=== PATIENT | female | born 1995 | race Caucasian/White ===

== ENCOUNTER 2017-03-04 11:34 | Emergency (ER) | payer BC, MEDICAID, OTHER ==
[2017-03-04 11:53] VITALS: BP 126/72
--- NOTE | 2017-03-04 12:27 | EDM.PDOC ---
ED HPI GENERAL MEDICAL PROBLEM - General Chief Complaint: Upper Extremity Injury/Pain Stated Complaint: RT HAND Time Seen by Provider: 03/04/17 11:50 Source of Information: Reports: Patient History Limitations: Reports: No Limitations - History of Present Illness INITIAL COMMENTS - FREE TEXT/NARRATIVE: Laurie was bucked off a horse last pm, landing onto outstretched R hand. There has been residual pain and stiffness since. There is no loss of sensation or swelling. Movement at the wrist also aggravates R hand pain. She has taken no meds. 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 Musculoskeletal History: Reports: Fracture, Other (See Below) Other Musculoskeletal History: FX OF RIGHT HAND Neurological History: Reports: None Psychiatric History: Reports: None Endocrine/Metabolic History: Reports: None Hematologic History: Reports: None Immunologic History: Reports: None Oncologic (Cancer) History: Reports: None Dermatologic History: Reports: None - Past Surgical History Head Surgeries/Procedures: Reports: None HEENT Surgical History: Reports: Oral Surgery Cardiovascular Surgical History: Reports: None Respiratory Surgical History: Reports: None GI Surgical History: Reports: None Female Surgical History: Reports: None Endocrine Surgical History: Reports: None Neurological Surgical History: Reports: None Musculoskeletal Surgical History: Reports: None Dermatological Surgical History: Reports: None Social & Family History - Tobacco Use Smoking Status *Q: Light Tobacco Smoker Years of Tobacco use: 4 Packs/Tins Daily: 0.1 - Caffeine Use Caffeine Use: Reports: Coffee, Energy Drinks, Soda, Tea - Recreational Drug Use Drug Use in Last 12 Months: Yes Recreational Drug Type: Reports: Marijuana/Hashish Recreational Drug Use Frequency: Socially Review of Systems - Review of Systems Review Of Systems: See Below Constitutional: Reports: No Symptoms Eyes: Reports: No Symptoms Ears: Reports: No Symptoms Nose: Reports: No Symptoms Mouth/Throat: Reports: No Symptoms Respiratory: Reports: No Symptoms Cardiovascular: Reports: No Symptoms GI/Abdominal: Reports: No Symptoms, Other Musculoskeletal: Reports: Hand Pain (right) Skin: Reports: No Symptoms Neurological: Reports: No Symptoms Psychiatric: Reports: No Symptoms ED EXAM, GENERAL - Physical Exam Exam: See Below Exam Limited By: No Limitations General Appearance: Alert, WD/WN, No Apparent Distress Head: Normocephalic Neck: Normal Inspection, Supple Respiratory/Chest: Lungs Clear Cardiovascular: Regular Rate, Rhythm Back Exam: Normal Inspection, Full Range of Motion Extremities: Normal Inspection, Limited Range of Motion (guarding right hand to grasp and full extension; guarding right wrist to extension; no swelling or deformity) Neurological: Alert, Oriented, CN II-XII Intact, Normal Cognition, No Motor/ Sensory Deficits Psychiatric: Normal Affect, Normal Mood Skin Exam: Warm, Dry Lymphatic: No Adenopathy Course - Vital Signs Text/Narrative:: X rays of R hand: no fx seen. No meds dispensed in the ED. Last Recorded V/S: Last Vital Signs Temp 36.7 C 03/04/17 11:41 Pulse 51 L 03/04/17 11:41 Resp 16 03/04/17 11:41 BP 126/72 03/04/17 11:41 Pulse Ox 99 03/04/17 11:41 - Orders/Labs/Meds Orders: Active Orders 24 hr Category Date Time Status Hand Comp Min 3V Rt [CR] Stat Exams 03/04/17 12:05 Taken Departure - Departure Time of Disposition: 12:15 Disposition: Home, Self-Care 01 Condition: fair Clinical Impression: Sprain of right hand Qualifiers: Encounter type: initial encounter Qualified Code(s): S63.91XA - Sprain of unspecified part of right wrist and hand, initial encounter - Discharge Information Forms: ED Department Discharge - Problem List & Annotations (1) Sprain of right hand SNOMED Code(s): 17414669 Code(s): S63.91XA - SPRAIN OF UNSP PART OF RIGHT WRIST AND HAND, INIT ENCNTR Status: Acute Current Visit: Yes Annotation/Comment:: Simple sprain of R hand, managed with NSAIDs, AROM, and activity as tolerated. Qualifiers: Encounter type: initial encounter Qualified Code(s): S63.91XA - Sprain of unspecified part of right wrist and hand, initial encounter - Problem List Review Problem List Initiated/Reviewed/Updated: Yes - My Orders Last 24 Hours: My Active Orders 03/04/17 12:05 Hand Comp Min 3V Rt [CR] Stat - Assessment/Plan Last 24 Hours: My Active Orders 03/04/17 12:05 Hand Comp Min 3V Rt [CR] Stat Plan: Follow up with PCP if needed.
--- NOTE | 2017-03-04 16:18 | CR ---
INDICATION: Pain, injury. RIGHT HAND: Three views of the right hand were obtained and revealed no evidence of an acute fracture, dislocation, or other significant bone or joint abnormality. IMPRESSION: Normal right hand. MTDD
== END 2017-03-04 12:30 | disposition home or self-care (01) ==
LOC: FB.ED 11:34
DX: S63.91XA Sprain of unspecified part of right wrist and hand, initial encounter (principal); F17.210 Nicotine dependence, cigarettes, uncomplicated; Z91.09 Other allergy status, other than to drugs and biological substances; Z98.890 Other specified postprocedural states; X58.XXXA Exposure to other specified factors, initial encounter
CPT/HCPCS: 73130-RT; 99283

== ENCOUNTER 2017-07-19 22:30 | Emergency (ER) | payer BC, MEDICAID ==
--- NOTE | 2017-07-19 22:38 | EDM.PDOCBH ---
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 Pt had those issues before -6 months ago-and was "cleared" by the . Pt denied any pysical issues, no N/V/D, no F/C. Pt stated, she is occ very lonely Onset: Today Onset Date: 07/20/17 Onset Time: 20:00 Duration: Hour(s):, Intermittent Location: Reports: Generalized Quality: Reports: Other (suicidal attempt) Improves with: Reports: None Worsens with: Reports: Other (depressed) - Related Data Allergies Allergy/AdvReac Type Severity Reaction Status Date / Time annika Allergy Hives Verified 07/20/17 02:47 Home Meds: Home Meds NK [No Known Home Meds] 07/20/17 [History] Past Medical History HEENT History: Reports: None Cardiovascular History: Reports: None Respiratory History: Reports: None Gastrointestinal History: Reports: None Genitourinary History: Reports: None 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 Musculoskeletal History: Reports: Fracture, Other (See Below) Other Musculoskeletal History: FX OF RIGHT HAND Neurological History: Reports: None Psychiatric History: Reports: None Endocrine/Metabolic History: Reports: None Hematologic History: Reports: None Immunologic History: Reports: None Oncologic (Cancer) History: Reports: None Dermatologic History: Reports: None - Past Surgical History Head Surgeries/Procedures: Reports: None HEENT Surgical History: Reports: Oral Surgery Cardiovascular Surgical History: Reports: None Respiratory Surgical History: Reports: None GI Surgical History: Reports: None Female Surgical History: Reports: None Endocrine Surgical History: Reports: None Neurological Surgical History: Reports: None Musculoskeletal Surgical History: Reports: None Dermatological Surgical History: Reports: None Social & Family History - Tobacco Use Smoking Status *Q: Light Tobacco Smoker Years of Tobacco use: 4 Packs/Tins Daily: 0.1 - Caffeine Use Caffeine Use: Reports: Coffee, Energy Drinks, Soda, Tea - Recreational Drug Use Drug Use in Last 12 Months: Yes Recreational Drug Type: Reports: Marijuana/Hashish Recreational Drug Use Frequency: Socially ED ROS GENERAL - Review of Systems Review Of Systems: See Below Constitutional: Reports: No Symptoms HEENT: Reports: No Symptoms Respiratory: Reports: No Symptoms Cardiovascular: Reports: No Symptoms Endocrine: Reports: No Symptoms GI/Abdominal: Reports: No Symptoms : Reports: No Symptoms Musculoskeletal: Reports: No Symptoms Skin: Reports: No Symptoms Neurological: Reports: No Symptoms Psychiatric: Reports: Suicidal Ideation (subsided now) Hematologic/Lymphatic: Reports: No Symptoms Immunologic: Reports: No Symptoms ED EXAM, BEHAVIORAL HEALTH - Physical Exam Exam: See Below Exam Limited By: No Limitations General Appearance: Alert, WD/WN, No Apparent Distress Eye Exam: Bilateral Eye: Normal Inspection Ears: Normal External Exam Nose: Normal Inspection Throat/Mouth: Normal Inspection Head: Atraumatic, Normocephalic Neck: Normal Inspection, Supple, Non-Tender, Full Range of Motion Respiratory/Chest: No Respiratory Distress, Lungs Clear, Normal Breath Sounds Cardiovascular: Normal Peripheral Pulses, Regular Rate, Rhythm, No Edema GI/Abdominal: Normal Bowel Sounds, Soft, Non-Tender, No Organomegaly (Female) Exam: Deferred Rectal (Female) Exam: Deferred Back Exam: Normal Inspection, Full Range of Motion Extremities: Normal Inspection, Normal Range of Motion, Non-Tender, No Pedal Edema, Normal Capillary Refill Neurological: Alert, Normal Mood/Affect, CN II-XII Intact, Normal Cognition, Normal Gait, Normal Reflexes, No Motor/Sensory Deficits, Oriented x 3 Psychiatric: Alert, Depressed Mood, Other (suicidal ideation subsided) Skin Exam: Warm, Dry, Intact, Normal color, No rash COURSE, BEHAVIORAL HEALTH COMP - Course Vital Signs: Last Vital Signs Temp 35.9 C 07/19/17 22:30 Pulse 71 07/20/17 00:20 Resp 16 07/20/17 00:20 BP 141/83 H 07/20/17 00:20 Pulse Ox 98 07/20/17 00:20 22 y.o.w.f, 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 Pt had those issues before -6 months ago-and was "cleared" by the SW. Pt denied any pysical issues, no N/V/D, no F/C. 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 Labs: BUN/Cr ration 21.3, otherwise cbc, bmp, ASA, acetaminophen, TSH and UDS were all neg. Impression: s/p Suicidal ideation/attempt Reexam: Pt refused further eval and requested to be discharged Plan: D/C with instructions Orders, Labs, Meds: Laboratory Tests 07/19/17 07/19/17 07/19/17 Range/Units 22:50 22:50 22:50 WBC (4.5-12.0) X10-3/uL RBC (3.23-5.20) x10(6)uL Hgb (11.5-15.5) g/dL Hct (30.0-51.3) % MCV (80-96) fL MCH (27.7-33.6) pg MCHC (32.2-35.4) g/dL RDW (11.5-15.5) % Plt Count (125-369) X10(3)uL MPV (7.4-10.4) fL Neut % (Auto) (46-82) % Lymph % (Auto) (13-37) % [place] % (Auto) (4-12) % Eos % (Auto) (1.0-5.0) % Baso % (Auto) (0-2) % Neut # (Auto) (1.6-8.3) # Lymph # (Auto) (0.6-5.0) # [place] # (Auto) (0.0-1.3) # Eos # (Auto) (0.0-0.8) # Baso # (Auto) (0.0-0.2) # Sodium (135-145) mmol/L Potassium (3.5-5.3) mmol/L Chloride (100-110) mmol/L Carbon Dioxide (23-29) mmol/L BUN (5-20) mg/dL Creatinine (0.6-1.3) mg/dL Est Cr Clr Drug Dosing mL/min Estimated GFR (MDRD) (>60) BUN/Creatinine Ratio (9-20) Glucose (80-116) mg/dL Calcium (8.6-10.2) mg/dL TSH, Ultra Sensitive 0.91 (0.4-5.5) nlU/mL Urine HCG, Qual (NEGATIVE) Salicylates < 4.0 L (5.0-25.0) mg/dL Urine Opiates Screen (NEGATIVE) Ur Oxycodone Screen (NEGATIVE) Ur Propoxyphene Screen (NEGATIVE) Acetaminophen < 10 L (10-30) ug/mL Ur Barbituates Screen (NEGATIVE) Ur Tricyclics Screen (NEGATIVE) Ur Phencyclidine Scrn (NEGATIVE) Ur Amphetamine Screen (NEGATIVE) Urine MDMA Screen (NEGATIVE) U Benzodiazepines Scrn (NEGATIVE) U Cocaine Metab Screen (NEGATIVE) U Marijuana (THC) Screen (NEGATIVE) Ethyl Alcohol < 0.01 (<0.01) % 07/19/17 07/19/17 07/19/17 Range/Units 22:50 22:50 23:58 WBC 9.4 (4.5-12.0) X10-3/uL RBC 5.03 (3.23-5.20) x10(6)uL Hgb 15.2 (11.5-15.5) g/dL Hct 45.0 (30.0-51.3) % MCV 89.4 (80-96) fL MCH 30.2 (27.7-33.6) pg MCHC 33.8 (32.2-35.4) g/dL RDW 11.9 (11.5-15.5) % Plt Count 332 (125-369) X10(3)uL MPV 7.8 (7.4-10.4) fL Neut % (Auto) 63.4 (46-82) % Lymph % (Auto) 27.5 (13-37) % [place] % (Auto) 7.0 (4-12) % Eos % (Auto) 1 (1.0-5.0) % Baso % (Auto) 1 (0-2) % Neut # (Auto) 5.9 (1.6-8.3) # Lymph # (Auto) 2.6 (0.6-5.0) # [place] # (Auto) 0.7 (0.0-1.3) # Eos # (Auto) 0.1 (0.0-0.8) # Baso # (Auto) 0.1 (0.0-0.2) # Sodium 138 (135-145) mmol/L Potassium 4.0 (3.5-5.3) mmol/L Chloride 102 (100-110) mmol/L Carbon Dioxide 29 (23-29) mmol/L BUN 17 (5-20) mg/dL Creatinine 0.8 (0.6-1.3) mg/dL Est Cr Clr Drug Dosing 109.08 mL/min Estimated GFR (MDRD) > 60 (>60) BUN/Creatinine Ratio 21.3 H (9-20) Glucose 110 (80-116) mg/dL Calcium 9.5 (8.6-10.2) mg/dL TSH, Ultra Sensitive (0.4-5.5) nlU/mL Urine HCG, Qual (NEGATIVE) Salicylates (5.0-25.0) mg/dL Urine Opiates Screen Negative (NEGATIVE) Ur Oxycodone Screen Negative (NEGATIVE) Ur Propoxyphene Screen Negative (NEGATIVE) Acetaminophen (10-30) ug/mL Ur Barbituates Screen Negative (NEGATIVE) Ur Tricyclics Screen Negative (NEGATIVE) Ur Phencyclidine Scrn Negative (NEGATIVE) Ur Amphetamine Screen Negative (NEGATIVE) Urine MDMA Screen Negative (NEGATIVE) U Benzodiazepines Scrn Negative (NEGATIVE) U Cocaine Metab Screen Negative (NEGATIVE) U Marijuana (THC) Screen Negative (NEGATIVE) Ethyl Alcohol (<0.01) % 07/19/17 Range/Units 23:58 WBC (4.5-12.0) X10-3/uL RBC (3.23-5.20) x10(6)uL Hgb (11.5-15.5) g/dL Hct (30.0-51.3) % MCV (80-96) fL MCH (27.7-33.6) pg MCHC (32.2-35.4) g/dL RDW (11.5-15.5) % Plt Count (125-369) X10(3)uL MPV (7.4-10.4) fL Neut % (Auto) (46-82) % Lymph % (Auto) (13-37) % [place] % (Auto) (4-12) % Eos % (Auto) (1.0-5.0) % Baso % (Auto) (0-2) % Neut # (Auto) (1.6-8.3) # Lymph # (Auto) (0.6-5.0) # [place] # (Auto) (0.0-1.3) # Eos # (Auto) (0.0-0.8) # Baso # (Auto) (0.0-0.2) # Sodium (135-145) mmol/L Potassium (3.5-5.3) mmol/L Chloride (100-110) mmol/L Carbon Dioxide (23-29) mmol/L BUN (5-20) mg/dL Creatinine (0.6-1.3) mg/dL Est Cr Clr Drug Dosing mL/min Estimated GFR (MDRD) (>60) BUN/Creatinine Ratio (9-20) Glucose (80-116) mg/dL Calcium (8.6-10.2) mg/dL TSH, Ultra Sensitive (0.4-5.5) nlU/mL Urine HCG, Qual Negative (NEGATIVE) Salicylates (5.0-25.0) mg/dL Urine Opiates Screen (NEGATIVE) Ur Oxycodone Screen (NEGATIVE) Ur Propoxyphene Screen (NEGATIVE) Acetaminophen (10-30) ug/mL Ur Barbituates Screen (NEGATIVE) Ur Tricyclics Screen (NEGATIVE) Ur Phencyclidine Scrn (NEGATIVE) Ur Amphetamine Screen (NEGATIVE) Urine MDMA Screen (NEGATIVE) U Benzodiazepines Scrn (NEGATIVE) U Cocaine Metab Screen (NEGATIVE) U Marijuana (THC) Screen (NEGATIVE) Ethyl Alcohol (<0.01) % Departure - Departure Time of Disposition: 00:23 Disposition: Home, Self-Care 01 Condition: Good Clinical Impression: Suicidal behavior with attempted self-injury - Discharge Information Instructions: Suicidal Feelings: How to Help Yourself Referrals: PCP,None [Primary Care Provider] - Forms: ED Department Discharge Additional Instructions: Please f/u with your psychiatrist/PMD a.s.a.p, please come back to the ED if your symptoms worsen.
[2017-07-19 23:19] LABS: ACETAMINOPHEN < 10 ug/mL (10-30)
[2017-07-20 02:52] VITALS: BP 141/83
== END 2017-07-20 00:30 | disposition home or self-care (01) ==
LOC: FB.ED 22:30
DX: T14.91XA Suicide attempt, initial encounter (principal); E66.9 Obesity, unspecified; Z91.018 Allergy to other foods
CPT/HCPCS: 36415; 80048; 80305; 81025; 84443; 85025; 99284; G0480

== ENCOUNTER 2023-03-17 04:47 | Emergency (ER) | payer OTHER, MEDICAID ==
[2023-03-17] MEDS ORDERED: Sodium Chloride 0.9% 10 ML Syringe FLUSH PRN (04:52)
[2023-03-17 05:21] LABS: BLOOD UREA NITROGEN,BUN 12 mg/dL (7-18); BUN/CREATININE RATIO 13.3 (9-20); CALCIUM 9.1 mg/dL (8.6-10.2); CARBON DIOXIDE,CO2 30 mmol/L (21-32); CHLORIDE,CL 104 mmol/L (100-110); CREATININE 0.9 mg/dL (0.55-1.02); ESTIMATED GFR 90 mL/min (>60); GLUCOSE RANDOM 110 mg/dL (80-116); POTASSIUM,K 4.2 mmol/L (3.5-5.3); SODIUM,NA 141 mmol/L (135-145)
[2023-03-17 05:24] LABS: BASOPHILS PERCENT AUTO 0.6 % (0.2-1.5); EOSINOPHILS ABSOLUTE AUTO 0.1 x10-3/uL (0.0-0.8); EOSINOPHILS PERCENT AUTO 1.6 % (0.6-8.1); HEMATOCRIT 45.4 % (34.2-48.2); HEMOGLOBIN 15.3 g/dL (11.4-15.5); LYMPHOCYTES ABSOLUTE AUTO 1.6 x10-3/uL (1.0-4.4); LYMPHOCYTES PERCENT AUTO 21.6 % (18.4-52.1); MEAN CORPUSCULAR HEMOGLOBIN 31.5 pg (23.9-33.9); MEAN CORPUSCULAR HGB CONC 33.8 g/dL (31.9-34.8); MEAN CORPUSCULAR VOLUME 93.3 fL (76.7-100.5); MEAN PLATELET VOLUME 7.2 fL (7.1-12.4); MONOCYTES ABSOLUTE AUTO 0.5 x10-3/uL (0.3-1.0); MONOCYTES PERCENT AUTO 6.7 % (4.4-15.7); NEUTROPHILS ABSOLUTE AUTO 5.1 x10-3/uL (1.5-6.3); NEUTROPHILS PERCENT AUTO 69.5 % (30.8-76.2); PLATELET COUNT,PLT 310 x10(3)uL (151-488); RED BLOOD CELL COUNT 4.86 x10(6)uL (3.60-5.20); RED CELL DISTRIBUTION WIDTH 12.5 % (12.3-16.5); WHITE BLOOD CELL COUNT,WBC 7.3 x10-3/uL (3.0-10.3)
[2023-03-17 05:32] LABS: PROTHROMBIN TIME 10.3 sec (9.0-11.1)
[2023-03-17 05:33] LABS: A/G RATIO 1.1; ALANINE AMINOTRANSFERASE,ALT 39 U/L (12-36); ALBUMIN 3.9 g/dL (3.5-5.2); ALKALINE PHOSPHATASE 65 IU/L (56-112); ASPARTATE AMNIOTRANSFERASE,AST 26 IU/L (5-25); BILIRUBIN TOTAL 0.3 mg/dL (0.1-1.3); PROTEIN TOTAL,TP 7.6 g/dL (6.0-8.0)
[2023-03-17 05:36] LABS: PTT,PARTIAL THROMBOPLSTIN TIME 25.1 SECONDS (24.4-33.2)
[2023-03-17] MEDS ORDERED: Iopamidol 755 Mg/ML 100 ML Bottle IV ONE (05:42)
[2023-03-17 07:07] VITALS: BP 126/75; PULSE 68
[2023-03-17] MEDS ORDERED: Ketorolac 30 MG/ML SDV IVPUSH ONE (07:35)
== END 2023-03-17 09:20 | disposition home or self-care (01) ==
LOC: FB.ED 04:47
DX: S40.011A Contusion of right shoulder, initial encounter (principal); S40.012A Contusion of left shoulder, initial encounter; S20.229A Contusion of unspecified back wall of thorax, initial encounter; S70.01XA Contusion of right hip, initial encounter; S70.02XA Contusion of left hip, initial encounter; V47.5XXA Car driver injured in collision with fixed or stationary object in traffic accident, initial encounter; Z91.018 Allergy to other foods; Y92.410 Unspecified street and highway as the place of occurrence of the external cause
CPT/HCPCS: 36415; 70450; 71260; 72125; 73030; 74177; 80053; 80307; 84702; 85025; 85610; 85730; 96374; 99285; J1885; Q9967